=== PATIENT | male | born 1975 | race Caucasian/White ===

== ENCOUNTER 2021-08-11 21:30 | Emergency (ER) | payer OTHER ==
--- NOTE | 2021-08-11 22:00 | EDM.PDOC ---
ED HPI GENERAL MEDICAL PROBLEM - General Chief Complaint: Headache Stated Complaint: PRESSURE IN HEAD Time Seen by Provider: 08/11/21 21:56 Source of Information: Reports: Patient History Limitations: Reports: No Limitations - History of Present Illness INITIAL COMMENTS - FREE TEXT/NARRATIVE: Riley complains of head pressure. This started earlier today,insidious onset. Pounding. No visual disturbance, or vomiting. He does endorse stress. He takes Lipitor,and has a h/o a mood disorder ;.[facility]. Grandfather had an aneurysm,and his friends urged him to be seen. head Pain Score (Numeric/FACES): 4 - Related Data Allergies Allergy/AdvReac Type Severity Reaction Status Date / Time No Known Allergies Allergy Verified 03/13/14 17:55 Home Meds: Home Meds . [Unable to Verify Home Med List] 03/13/14 [History] ED ROS GENERAL - Review of Systems Review Of Systems: Comprehensive ROS is negative, except as noted in HPI. - Physical Exam Exam: See Below Exam Limited By: No Limitations General Appearance: Alert, WD/WN, No Apparent Distress Ears: Normal External Exam Nose: Normal Inspection Throat/Mouth: Normal Inspection Head Exam: Atraumatic, Normocephalic Neck: Normal Inspection, Supple Neuro Exam (Abbreviated): Alert, Oriented, CN II-XII Intact Course - Vital Signs Last Recorded V/S: Last Vital Signs Temp 98.9 F 08/11/21 21:30 Pulse 102 H 08/11/21 21:30 Resp 18 08/11/21 21:30 BP 160/90 H 08/11/21 21:30 Pulse Ox 98 08/11/21 21:30 Departure - Departure Time of Disposition: 21:58 Disposition: Home, Self-Care 01 Clinical Impression: Tension-type headache - Discharge Information Sepsis Event Note (ED) - Evaluation Sepsis Screening Result: No Definite Risk - Focused Exam Vital Signs: Vital Signs Temp Pulse Resp BP Pulse Ox 08/11/21 21:30 98.9 F 102 H 18 160/90 H 98 - Problem List & Annotations (1) Elevated BP without diagnosis of hypertension SNOMED Code(s): 660483915 Code(s): R03.0 - ELEVATED BLOOD-PRESSURE READING, W/O DIAGNOSIS OF HTN Status: Acute (2) Tension-type headache SNOMED Code(s): 115036240 Code(s): G44.209 - TENSION-TYPE HEADACHE, UNSPECIFIED, NOT INTRACTABLE Status: Acute - Problem List Review Problem List Initiated/Reviewed/Updated: Yes - Assessment/Plan Plan: His BP was in the 160s.s I offered him CT testing,Toradol and Vistaril,he declined. I suggested he goes home,rests and [facility]
== END 2021-08-11 22:15 | disposition home or self-care (01) ==
LOC: FB.ED 21:30
DX: G44.209 Tension-type headache, unspecified, not intractable (principal); R03.0 Elevated blood-pressure reading, without diagnosis of hypertension
CPT/HCPCS: 99283